=== PATIENT | male | born 1975 | race Caucasian/White ===

== ENCOUNTER 2017-09-29 10:44 | Emergency (ER) | payer MEDICARE, OTHER ==
[2017-09-29 10:56] VITALS: TEMP 97.9; O2SAT 96
[2017-09-29 11:03] VITALS: BMI 41.3
--- NOTE | 2017-09-29 11:05 | C.PDOC ---
History Of Present Illness 42 y/o male presents to ED for evaluation of left upper molar pain intermittently for the past 4 months. Pt states that he was seen by 2 different dentists to have that tooth removed but has not yet been removed. Otherwise, denies drainage, fever, chills, or trauma to face. Time Seen by Provider: 09/29/17 10:55 Chief Complaint (Nursing): Dental Pain History Per: Patient History/Exam Limitations: no limitations Onset/Duration Of Symptoms: Days Current Symptoms Are (Timing): Still Present Quality: Positive for: "Pain" Past Medical History Reviewed: Historical Data, Nursing Documentation, Vital Signs Vital Signs: Last Vital Signs Temp 97.9 F 09/29/17 10:54 Pulse 68 09/29/17 10:54 Resp 16 09/29/17 10:54 BP 139/85 09/29/17 10:54 Pulse Ox 96 09/29/17 11:52 - Medical History PMH: HTN, Hypercholesterolemia Denies: Chronic Kidney Disease - [facility] Procedures RESECTION OF GALLBLADDER, PERCUTANEOUS ENDOSCOPIC APPROACH (03/16/16) Family History: States: Unknown Family Hx - Social History Hx Tobacco Use: No Hx Alcohol Use: Yes Hx Substance Use: No - Immunization History Hx Tetanus Toxoid Vaccination: No Hx Influenza Vaccination: No Hx Pneumococcal Vaccination: No Review Of Systems Except As Marked, All Systems Reviewed And Found Negative. Constitutional: Negative for: Fever, Chills ENT: Positive for: Mouth Pain (dental pain). Negative for: Mouth Swelling Physical Exam - Physical Exam Appears: Non-toxic, No Acute Distress (comfortable) Skin: Normal Color, Warm, Dry Head: Atraumatic, Normacephalic Eye(s): bilateral: Normal Inspection Oral Mucosa: Moist Tongue: Normal Appearing Lips: Normal Appearing Teeth: Tender To Palpation (tooth #15 has temporary filling and is tender to palpation) Gingiva: Normal Appearing, No Erythema, No Swelling, No Abscess Throat: Normal Neck: Supple Cardiovascular: Rhythm Regular, No Murmur Respiratory: Normal Breath Sounds, No Rales, No Rhonchi, No Wheezing Extremity: Normal ROM Neurological/Psych: Oriented x3, Normal Speech ED Course And Treatment O2 Sat by Pulse Oximetry: 96 (RA) Pulse Ox Interpretation: Normal Progress Note: Pt was given Toradol IM. Patient is being discharged home with Rx of Naproxen and is instructed to follow up with dentist in 1 week for further evaluation. Medical Decision Making Medical Decision Making: [place] RE[place]: 09/06/2017 1 09/06/2017 OXYCODONE-ACETAMINOPHEN 10-325 150.0 25 [place] JORGE A [id number] REG[facility] (3113) 0 90.0 [place] 09/06/2017 1 09/06/2017 ALPRAZOLAM 2 MG TABLET 90.0 30 AR JORGE A [id number] REG[facility] (3113 ) 0 [place] 08/17/2017 1 08/17/2017 ZOLPIDEM TARTRATE 5 MG TABLET 30.0 30 PA RIK [id number] [facility] (3113) 0 [place] 08/08/2017 1 08/08/2017 ALPRAZOLAM 2 MG TABLET 90.0 30 LA JORGE A [id number] [facility] (3113 ) 0 [place] 08/08/2017 1 08/08/2017 ENDOCET 10-325 MG TABLET 150.0 25 LA JORGE A [id number] [facility] ( 3113) 0 90.0 [place] 07/12/2017 1 06/13/2017 ZOLPIDEM TARTRATE 10 MG TABLET 30.0 30 PA RIK [id number] [facility] (3113) 1 [place] 07/10/2017 1 07/10/2017 ALPRAZOLAM 2 MG TABLET 90.0 30 AR JORGE A [id number] [facility] (3113 ) 0 [place] 07/10/2017 1 07/10/2017 OXYCODONE-ACETAMINOPHEN 10-325 150.0 25 AR JORGE A [id number] [facility] (3113) 0 90.0 [place] 06/13/2017 1 06/13/2017 ZOLPIDEM TARTRATE 10 MG TABLET 30.0 30 PA RIK [id number] [facility] (3113) 0 [place] 06/07/2017 1 06/07/2017 OXYCODONE-ACETAMINOPHEN 10-325 120.0 30 AR JORGE A [id number] [facility] (3113) 0 60.0 [place] 06/07/2017 1 06/07/2017 ALPRAZOLAM 2 MG TABLET 90.0 30 AR JORGE A [id number] [facility] (3113 ) 0 [place] 05/07/2017 1 05/07/2017 ALPRAZOLAM 2 MG TABLET 90.0 30 AR JORGE A [id number] [facility] (3113 ) 0 [place] 05/07/2017 1 05/07/2017 OXYCODONE-ACETAMINOPHEN 10-325 120.0 30 AR JORGE A [id number] [facility] (3113) 0 60.0 [place] 04/03/2017 1 04/03/2017 ALPRAZOLAM 2 MG TABLET 90.0 30 AR JORGE A [id number] [facility] (3113 ) 0 [place] 04/03/2017 1 04/03/2017 OXYCODONE-ACETAMINOPHEN 10-325 120.0 30 AR JORGE A [id number] [facility] (3113) 0 60.0 [place] 03/01/2017 1 03/01/2017 ALPRAZOLAM 2 MG TABLET 90.0 30 AR JORGE A [id number] [facility] (3113 ) 0 [place] 03/01/2017 1 03/01/2017 OXYCODONE-ACETAMINOPHEN 10-325 120.0 30 AR JORGE A [id number] [facility] (3113) 0 60.0 [place] 01/31/2017 1 01/31/2017 OXYCODONE-ACETAMINOPHEN 10-325 120.0 30 IM DHI [id number] [facility] (3113) 0 60.0 [place] 01/31/2017 1 01/31/2017 ALPRAZOLAM 2 MG TABLET 90.0 30 IM DHI [id number] [facility] (3113 ) 0 [place] 01/04/2017 1 01/04/2017 ALPRAZOLAM 2 MG TABLET 90.0 30 AR JORGE A [id number] [facility] (3113 ) 0 [place] 01/04/2017 1 01/04/2017 OXYCODONE-ACETAMINOPHEN 10-325 120.0 30 AR JORGE A [id number] [facility] (3113) 0 60.0 [place] 12/05/2016 1 12/05/2016 ALPRAZOLAM 2 MG TABLET 30.0 30 AR JORGE A [id number] [facility] (3113 ) 0 [place] 12/05/2016 1 12/05/2016 OXYCODONE HCL 15 MG TABLET 120.0 30 AR JORGE A [id number] [facility] (3113) 0 90.0 [place] 11/08/2016 1 11/08/2016 OXYCODONE-ACETAMINOPHEN 10-325 120.0 30 IM DHI [id number] [facility] (3113) 0 60.0 [place] 10/09/2016 1 10/09/2016 OXYCODONE-ACETAMINOPHEN 10-325 120.0 30 AR JORGE A [id number] [facility] (3113) 0 60.0 [place] Name Address [facility] Zip Phone MD DAVID, ROMEO [address] [facility] [address] [phone] GEE SANTOS [address] [facility] [address] [phone] LUTHER SALVADOR, : 1975, Created On: 09/29/2017 Name Address [facility] Zip Phone OUMOU ONOFRE R [address] [facility] [address] [phone] SAHARA ONOFRE H [address] [facility] [address] [phone] Disposition Counseled Patient/Family Regarding: Diagnosis, Need For Followup, Rx Given - Disposition Referrals: [facility]. [facility] [Outside] Disposition: HOME/ ROUTINE Disposition Time: 11:15 Condition: STABLE Additional Instructions: FOLLOW UP WITH DENTIST WITHIN 1 WEEK USE PAIN MEDICATION NEEDED RETURN TO EMERGENCY ROOM IF SYMPTOMS WORSEN Prescriptions: Naproxen [Naprosyn] 1 tab PO BID PRN #25 tab PRN Reason: Pain Instructions: Toothache (ED) Forms: [employer] (Urdu) Print Language: LUXEMBOURGER - POA Present On Arrival: None - Clinical Impression Clinical Impression: Chronic dental pain - Scribe Statement The provider has reviewed the documentation as recorded by the Scribe Mary Beth Cole All medical record entries made by the Josselineibluke were at my direction and personally dictated by me. I have reviewed the chart and agree that the record accurately reflects my personal performance of the history, physical exam, medical decision making, and the department course for this patient. I have also personally directed, reviewed, and agree with the discharge instructions and disposition.
[2017-09-29 11:59] VITALS: BP 126/75; PULSE 65; RESP 18
== END 2017-09-29 11:45 | disposition home or self-care (01) ==
LOC: C.ER 10:44
DX: K08.89 Other specified disorders of teeth and supporting structures (principal); E78.00 Pure hypercholesterolemia, unspecified; I10 Essential (primary) hypertension
CPT/HCPCS: 96372; 99283; J1885

== ENCOUNTER 2018-01-19 03:18 | Emergency (ER) | payer MEDICARE, OTHER ==
[2018-01-19 03:19] VITALS: BMI 43.4
[2018-01-19] MEDS ORDERED: Amoxicillin-Clav 500-125 mg Tab PO STA (04:36)
[2018-01-19] MEDS ORDERED: Oxycodone/Acetaminophen 5/325 mg Tab PO STA (04:36)
[2018-01-19] MEDS ORDERED: Amoxicillin-Clav 500-125 mg Tab PO ONE (04:47)
[2018-01-19] MEDS ORDERED: Oxycodone/Acetaminophen 5/325 mg Tab ONE (04:48)
--- NOTE | 2018-01-19 05:26 | C.PDOC ---
Time Seen by Provider: 01/19/18 04:01 Chief Complaint (Nursing): Dental Pain Past Medical History Vital Signs: Last Vital Signs Temp 97.7 F 01/19/18 03:38 Pulse 66 01/19/18 03:38 Resp 20 01/19/18 03:38 BP 152/87 H 01/19/18 03:38 Pulse Ox 98 01/19/18 03:38 - Medical History PMH: HTN, Hypercholesterolemia Denies: Chronic Kidney Disease Surgical History: Cholecystectomy - [facility] Procedures RESECTION OF GALLBLADDER, PERCUTANEOUS ENDOSCOPIC APPROACH (03/16/16) Family History: States: Unknown Family Hx - Social History Hx Tobacco Use: No Hx Alcohol Use: No Hx Substance Use: No - Immunization History Hx Tetanus Toxoid Vaccination: No Hx Influenza Vaccination: No Hx Pneumococcal Vaccination: No ED Course And Treatment O2 Sat by Pulse Oximetry: 98 Disposition - Disposition Referrals: [facility]. [facility] [Outside] Xu Arboleda DMD [Staff Provider] - Disposition: HOME/ ROUTINE Disposition Time: 05:24 Condition: GOOD Additional Instructions: Follow up with the medical doctor within 1-2 days. Return if worsened, Go to the [place] [facility] Prescriptions: Amoxicillin [Amoxil 500 mg Cap] 500 mg PO TID #29 cap Ibuprofen [Motrin Tab] 800 mg PO TID #20 tab traMADol [Ultram] 50 mg PO Q6 PRN #20 tab PRN Reason: Pain Instructions: Tooth Decay, Adult, Dental Pain (DC) Forms: [employer] (Danish) - Clinical Impression Clinical Impression: Dental caries
--- NOTE | 2018-01-19 05:28 | C.PDOC ---
History Of Present Illness 42 y/o male presents to ED with complaints of dental pain that began 2 days ago. Denies fever. Patient states he got a root canal several months ago and never went back to finish it. Denies fever. Time Seen by Provider: 01/19/18 04:01 Chief Complaint (Nursing): Dental Pain History Per: Patient History/Exam Limitations: no limitations Onset/Duration Of Symptoms: Days (2) Current Symptoms Are (Timing): Still Present Pain Scale Rating Of: 6 Quality: Positive for: Sharp Recent travel outside of the [place]: No Past Medical History Reviewed: Historical Data, Nursing Documentation, Vital Signs Vital Signs: Last Vital Signs Temp 98.4 F 01/19/18 05:36 Pulse 62 01/19/18 05:36 Resp 14 01/19/18 05:36 BP 144/87 01/19/18 05:36 Pulse Ox 96 01/19/18 05:36 - Medical History PMH: HTN, Hypercholesterolemia Surgical History: Cholecystectomy - [facility] Procedures RESECTION OF GALLBLADDER, PERCUTANEOUS ENDOSCOPIC APPROACH (03/16/16) Family History: States: Unknown Family Hx - Social History Hx Tobacco Use: No Hx Alcohol Use: No Hx Substance Use: No - Immunization History Hx Tetanus Toxoid Vaccination: No Hx Influenza Vaccination: No Hx Pneumococcal Vaccination: No Review Of Systems Except As Marked, All Systems Reviewed And Found Negative. Constitutional: Negative for: Fever ENT: Positive for: Other (Dental pain) Gastrointestinal: Negative for: Nausea, Vomiting, Diarrhea Neurological: Negative for: Weakness, Numbness Physical Exam - Physical Exam Appears: Non-toxic, No Acute Distress Skin: Normal Color, Warm, Dry Head: Atraumatic, Normacephalic Eye(s): bilateral: Normal Inspection Oral Mucosa: Moist Teeth: Other (Swelling and tenderness to gums) Throat: No Erythema, No Exudate Neck: Supple Chest: Symmetrical, No Tenderness Cardiovascular: Rhythm Regular Respiratory: Normal Breath Sounds, No Rales, No Rhonchi, No Wheezing Gastrointestinal/Abdominal: Soft, No Tenderness Back: Normal Inspection, No CVA Tenderness Neurological/Psych: Oriented x3, Normal Speech, Normal Cognition, Normal Motor, Normal Sensation Gait: Steady ED Course And Treatment O2 Sat by Pulse Oximetry: 98 (RA) Pulse Ox Interpretation: Normal Medical Decision Making Medical Decision Making: Administered Amoxixillin, motrin, and percocet. Disposition - Disposition Referrals: [facility] [Outside] Xu Arboleda, DMD [Staff Provider] - Disposition: HOME/ ROUTINE Disposition Time: 05:30 Condition: GOOD Additional Instructions: Follow up with the medical doctor within 1-2 days. Return if worsened, Go to the [place] [facility]. [facility] Prescriptions: Amoxicillin [Amoxil 500 mg Cap] 500 mg PO TID #29 cap Ibuprofen [Motrin Tab] 800 mg PO TID #20 tab oxyCODONE/Acetaminophen [Percocet 5/325 mg Tab] 1 tab PO QID PRN #5 tab PRN Reason: Pain Instructions: Tooth Decay, Adult, Dental Pain (DC) Forms: [employer] (Yakut) - Clinical Impression Clinical Impression: Dental caries - PA / HOT REPAIRMAN / Resident Statement MD/DO has reviewed & agrees with the documentation as recorded. - Scribe Statement The provider has reviewed the documentation as recorded by the Scribluke Tucker All medical record entries made by the Scribe were at my direction and personally dictated by me. I have reviewed the chart and agree that the record accurately reflects my personal performance of the history, physical exam, medical decision making, and the department course for this patient. I have also personally directed, reviewed, and agree with the discharge instructions and disposition.
[2018-01-19 05:36] VITALS: BP 144/87; PULSE 62; RESP 14; TEMP 98.4
[2018-01-20 22:41] VITALS: O2SAT 98
== END 2018-01-19 05:50 | disposition home or self-care (01) ==
LOC: C.ER 03:18
DX: K02.9 Dental caries, unspecified (principal); I10 Essential (primary) hypertension; E78.00 Pure hypercholesterolemia, unspecified